=== PATIENT | male | born 1970 ===

== ENCOUNTER 2017-11-06 20:26 | Inpatient (IN) | payer OTHER ==
[~2017-11-06] VITALS: Ht 185.4 cm; Wt 86.2 kg
[2017-11-06] MEDS ORDERED: DESCOVY 200-251 EACH (20:50)
== END 2017-12-04 11:52 | disposition home or self-care (01) | DRG 970 ==
LOC: ER 20:26 → SEC-K 11-08 10:45 → SURH 11-08 10:45 → SEC-K 11-08 19:49 → SURH 11-09 17:37
PROC: BW21Y0Z Computerized Tomography (CT Scan) of Abdomen and Pelvis using Other Contrast, Unenhanced and Enhanced (ICD-10-PCS; 2017-11-09)
PROC: 8E0ZXY6 Isolation (ICD-10-PCS; 2017-11-09)
PROC: 0Y950ZZ Drainage of Right Inguinal Region, Open Approach (ICD-10-PCS; principal; 2017-11-12)
DX: B20 Human immunodeficiency virus [HIV] disease (principal); N39.0 Urinary tract infection, site not specified; L02.214 Cutaneous abscess of groin; A04.72 Enterocolitis due to Clostridium difficile, not specified as recurrent; A07.2 Cryptosporidiosis; N17.8 Other acute kidney failure; E86.0 Dehydration; B96.20 Unspecified Escherichia coli [E. coli] as the cause of diseases classified elsewhere; Z16.12 Extended spectrum beta lactamase (ESBL) resistance; B95.61 Methicillin susceptible Staphylococcus aureus infection as the cause of diseases classified elsewhere; B37.2 Candidiasis of skin and nail; E87.6 Hypokalemia

== ENCOUNTER 2020-12-05 07:54 | Outpatient (CLI) | payer OTHER ==
[~2020-12-05 07:54] MED LIST: DESCOVY 200-251 EACH
== END 2020-12-05 08:20 | disposition home or self-care (01) ==
LOC: RAD 07:54
PROVIDERS: ATTEND Specialist
DX: M25.561 Pain in right knee (principal); M79.671 Pain in right foot